=== PATIENT | female | born 1970 | race Two or more races ===

== ENCOUNTER 2017-07-28 11:15 | Outpatient (CLI) | payer OTHER | END 2017-07-28 11:19 | disposition home or self-care (01) | LOC: MAMO-SONO 11:15 | DX: Z12.31 Encounter for screening mammogram for malignant neoplasm of breast (principal); N64.4 Mastodynia ==

== ENCOUNTER 2017-07-29 07:10 | Outpatient (CLI) | payer OTHER | END 2017-07-29 07:30 | disposition home or self-care (01) | LOC: LAB 07:10 | DX: N95.1 Menopausal and female climacteric states (principal); E78.2 Mixed hyperlipidemia; N39.0 Urinary tract infection, site not specified; E20.8 Other hypoparathyroidism; E55.9 Vitamin D deficiency, unspecified; R79.1 Abnormal coagulation profile; E03.8 Other specified hypothyroidism; E53.8 Deficiency of other specified B group vitamins; R10.2 Pelvic and perineal pain ==

== ENCOUNTER 2017-08-04 09:31 | Outpatient (CLI) | payer OTHER | END 2017-08-04 09:56 | disposition home or self-care (01) | LOC: LAB 09:31 | DX: N95.1 Menopausal and female climacteric states (principal); E78.2 Mixed hyperlipidemia; N39.0 Urinary tract infection, site not specified; E20.8 Other hypoparathyroidism; E55.9 Vitamin D deficiency, unspecified; R79.1 Abnormal coagulation profile; E03.8 Other specified hypothyroidism; E53.8 Deficiency of other specified B group vitamins; R10.2 Pelvic and perineal pain ==

== ENCOUNTER 2017-08-04 10:11 | Outpatient (CLI) | payer OTHER | END 2017-08-04 10:22 | disposition home or self-care (01) | LOC: RAD 501 10:11 | DX: M25.521 Pain in right elbow (principal); M54.5 Low back pain; M25.511 Pain in right shoulder ==

== ENCOUNTER 2017-11-06 09:39 | Outpatient (CLI) | payer OTHER | END 2017-11-06 09:48 | disposition home or self-care (01) | LOC: RAD 09:39 | DX: M54.5 Low back pain (principal); R30.0 Dysuria; R31.9 Hematuria, unspecified ==

== ENCOUNTER → 2018-08-12 | Outpatient (CLI) | payer OTHER | END | disposition home or self-care (01) | LOC: MAMO-SONO 12:01 | DX: N64.4 Mastodynia (principal); Z12.31 Encounter for screening mammogram for malignant neoplasm of breast ==

== ENCOUNTER 2018-08-20 13:05 | Outpatient (CLI) | payer OTHER | END 2018-08-20 13:14 | disposition home or self-care (01) | LOC: NUCLEAR 13:05 | DX: M81.0 Age-related osteoporosis without current pathological fracture (principal) ==

== ENCOUNTER 2018-08-31 09:06 | Outpatient (CLI) | payer OTHER | END 2018-08-31 09:43 | disposition home or self-care (01) | LOC: LAB 09:06 | DX: N39.0 Urinary tract infection, site not specified (principal); N95.1 Menopausal and female climacteric states; E78.00 Pure hypercholesterolemia, unspecified; E20.8 Other hypoparathyroidism; E55.9 Vitamin D deficiency, unspecified; R79.1 Abnormal coagulation profile; E03.8 Other specified hypothyroidism; E53.8 Deficiency of other specified B group vitamins; R10.2 Pelvic and perineal pain ==

== ENCOUNTER 2019-04-10 09:34 | Outpatient (CLI) | payer OTHER | END 2019-04-10 09:44 | disposition home or self-care (01) | LOC: LAB 09:34 | DX: N95.1 Menopausal and female climacteric states (principal); E78.00 Pure hypercholesterolemia, unspecified; N39.0 Urinary tract infection, site not specified; E20.8 Other hypoparathyroidism ==

== ENCOUNTER 2019-12-06 10:22 | Outpatient (CLI) | payer OTHER | END 2019-12-06 10:40 | disposition home or self-care (01) | LOC: RAD 10:22 | DX: Z12.31 Encounter for screening mammogram for malignant neoplasm of breast (principal); M54.2 Cervicalgia; R05 Cough; N64.4 Mastodynia ==

== ENCOUNTER 2019-12-11 07:44 | Outpatient (CLI) | payer OTHER | END 2019-12-11 15:00 | disposition home or self-care (01) | LOC: LAB 07:44 | DX: N30.00 Acute cystitis without hematuria (principal) ==

== ENCOUNTER → 2020-06-13 09:38 | Outpatient (CLI) | payer OTHER | END | disposition home or self-care (01) | LOC: LAB 09:38 | PROVIDERS: ATTEND Obstetrics & Gynecology Obstetrics | DX: N95.1 Menopausal and female climacteric states (principal); E78.00 Pure hypercholesterolemia, unspecified; N39.0 Urinary tract infection, site not specified; E20.8 Other hypoparathyroidism; E55.9 Vitamin D deficiency, unspecified; R79.1 Abnormal coagulation profile; E03.8 Other specified hypothyroidism; E53.8 Deficiency of other specified B group vitamins; R10.2 Pelvic and perineal pain; G44.059 Short lasting unilateral neuralgiform headache with conjunctival injection and tearing (SUNCT), not intractable; H81.13 Benign paroxysmal vertigo, bilateral; R41.3 Other amnesia ==

== ENCOUNTER 2020-10-10 09:02 | Outpatient (CLI) | payer OTHER | END 2020-10-10 09:10 | disposition home or self-care (01) | LOC: LAB 09:02 | DX: E03.8 Other specified hypothyroidism (principal); R41.3 Other amnesia; E55.9 Vitamin D deficiency, unspecified; M62.81 Muscle weakness (generalized); E78.2 Mixed hyperlipidemia; D51.0 Vitamin B12 deficiency anemia due to intrinsic factor deficiency; F03.91 Unspecified dementia, unspecified severity, with behavioral disturbance; R42 Dizziness and giddiness ==

== ENCOUNTER 2020-10-28 09:09 | Outpatient (CLI) | payer OTHER | END 2020-10-28 09:19 | disposition home or self-care (01) | LOC: RAD 09:09 | PROVIDERS: ATTEND General Practice | DX: R10.33 Periumbilical pain (principal); M54.5 Low back pain ==

== ENCOUNTER 2020-10-28 09:58 | Outpatient (CLI) | payer OTHER | END 2020-10-28 10:12 | disposition home or self-care (01) | LOC: LAB 09:58 | PROVIDERS: ATTEND General Practice | DX: R10.33 Periumbilical pain (principal); M54.5 Low back pain; R30.0 Dysuria ==

== ENCOUNTER → 2021-01-30 07:15 | Outpatient (CLI) | payer OTHER | END | disposition home or self-care (01) | LOC: LAB 07:15 | PROVIDERS: ATTEND Obstetrics & Gynecology Obstetrics | DX: E78.00 Pure hypercholesterolemia, unspecified (principal); E55.9 Vitamin D deficiency, unspecified ==

== ENCOUNTER 2021-01-31 07:26 | Outpatient (CLI) | payer OTHER | END 2021-01-31 07:34 | disposition home or self-care (01) | LOC: MAMO-SONO 07:26 | PROVIDERS: ATTEND Obstetrics & Gynecology Obstetrics | DX: N64.4 Mastodynia (principal) ==

== ENCOUNTER 2021-07-11 04:53 | Emergency (ER) | payer OTHER ==
[~2021-07-11] VITALS: Ht 170.2 cm; Wt 75.7 kg
[2021-07-11] MEDS ORDERED: BUTALB-ASPIRIN1 EACH PO (08:31)
== END 2021-07-11 08:41 | disposition home or self-care (01) ==
LOC: ER 04:53
DX: R51.9 Headache, unspecified (principal)

== ENCOUNTER 2022-05-07 09:46 | Outpatient (CLI) | payer OTHER ==
[~2022-05-07 09:46] MED LIST: BUTALB-ASPIRIN1 EACH PO
== END 2022-05-07 09:57 | disposition home or self-care (01) ==
LOC: TOM 09:46
PROVIDERS: ATTEND General Practice
DX: R22.0 Localized swelling, mass and lump, head (principal)

== ENCOUNTER 2022-12-13 10:05 | Outpatient (CLI) | payer OTHER | END 2022-12-13 10:19 | disposition home or self-care (01) | LOC: MAMO-SONO 10:05 | PROVIDERS: ATTEND Obstetrics & Gynecology Obstetrics | DX: N64.4 Mastodynia (principal); Z12.31 Encounter for screening mammogram for malignant neoplasm of breast ==

== ENCOUNTER 2023-04-04 10:10 | Outpatient (CLI) | payer OTHER | END 2023-04-04 10:20 | disposition home or self-care (01) | LOC: TOM 10:10 | PROVIDERS: ATTEND General Practice | DX: R10.32 Left lower quadrant pain (principal) ==

== ENCOUNTER 2023-04-17 11:38 | Outpatient (CLI) | payer OTHER | END 2023-04-17 11:41 | disposition home or self-care (01) | LOC: MRI 11:38 | PROVIDERS: ATTEND General Practice | DX: K76.89 Other specified diseases of liver (principal) | CPT/HCPCS: 74183 ==

== ENCOUNTER 2024-10-28 07:22 | Outpatient (CLI) | payer OTHER | END 2024-10-28 07:28 | disposition home or self-care (01) | LOC: MRI 07:22 | PROVIDERS: ATTEND General Practice | DX: K76.89 Other specified diseases of liver (principal); N60.01 Solitary cyst of right breast; N60.02 Solitary cyst of left breast; M25.561 Pain in right knee | CPT/HCPCS: 72197; 74183 ==